=== PATIENT | male | born 1985 | race Caucasian/White ===

== ENCOUNTER 2019-09-08 14:12 | Inpatient (IN) | payer OTHER ==
[~2019-09-08] VITALS: Ht 182.9 cm; Wt 85.7 kg
[2019-09-08 14:12] VITALS: BP 155/115
[2019-09-08 15:52] LABS: BASO # 0.1 10*3/uL (0.0-0.1); BASO % 0.4 % (0.0-1.0); EOS # 0.1 10*3/uL (0.0-0.4); EOS % 0.9 % (1.0-4.0); HEMATOCRIT 46.3 % (42.0-52.0); HEMOGLOBIN 16.9 g/dl (14.0-18.0); LYMPH # 1.6 10*3/uL (1.3-4.4); LYMPH % 13.6 % (27.0-41.0); MEAN CELL VOLUME 85.6 fl (80.0-94.0); MEAN CORPUSCULAR HGB 31.2 pg (27.0-31.0); MEAN CORPUSCULAR HGB CONC 36.5 g/dl (33.0-37.0); MEAN PLATELET VOLUME 9.3 fl (9.6-12.3); MONO # 0.6 10*3/uL (0.1-1.0); MONO % 5.2 % (3.0-9.0); NEUT % 79.6 % (47.0-73.0); PLATELET COUNT AUTOMATED 276 10*3/uL (130-400); RED BLOOD COUNT 5.41 10*6/uL (4.50-5.90); RED CELL DISTRI WIDTH 12.2 % (0-14.5); WHITE BLOOD COUNT 11.4 10*3/uL (4.8-10.8)
[2019-09-08 16:09] LABS: ALBUMIN 4.4 gm/dl (3.1-4.5); ALKALINE PHOSPHATASE 117 U/L (45-117); BUN 6 mg/dl (7-24); CHLORIDE 106 mmol/L (98-107); CREATININE 1.08 mg/dL (0.70-1.30); LIPASE 144 U/L (73-393); POTASSIUM 4.1 mmol/L (3.5-5.1); SGOT/AST 16 IU/L (3-35); SGPT/ALT 30 U/L (12-78); SODIUM 141 mmol/L (136-145)
[2019-09-08 16:34] VITALS: BP 138/83
[2019-09-08 16:43] LABS: BILIRUBIN NEGATIVE (NEGATIVE); BLOOD NEGATIVE (NEGATIVE); CLARITY CLEAR (CLEAR); COLOR YELLOW (YELLOW); GLUCOSE NEGATIVE (NEGATIVE); KETONE NEGATIVE (NEGATIVE); LEUKO ESTERASE TRACE (NEGATIVE); NITRITE NEGATIVE (NEGATIVE); SPECIFIC GRAVITY <= 1.005 (1.005-1.030); UROBILINOGEN 0.2 E.U./dl (0.2-1.0)
[2019-09-08 16:51] LABS: URINE AMPHETAMINES < 1000 (1000ng/ml); URINE BARBITURATES > 200 (200ng/ml); URINE BENZODIAZEPINES < 200 (200ng/ml); URINE CANNABINOIDS (THC) < 50 (50ng/ml); URINE COCAINE < 300 (300ng/ml); URINE METHADONE < 300 (300ng/ml); URINE OPIATES < 300 (300ng/ml)
[2019-09-08 16:53] LABS: URINE PHENCYCLIDINE < 25 (25ng/ml)
[2019-09-08 17:00] VITALS: BP 146/87
[2019-09-08 17:01] LABS: RBC 0-2 rbc/hpf (0-2); WBC 0-2 wbc/hpf (0-5)
--- NOTE | 2019-09-08 17:08 | NUR ---
PATIENT IS INTERESTED IN NEW VISION SERVICES. [place] STAFF WILL FOLLOW UP WITH PATIENT. ALEJANDRO TAVAREZ B.A. LOGGING SHOVEL OPERATOR
[2019-09-08 17:10] VITALS: BP 146/87
--- NOTE | 2019-09-08 17:10 | NUR ---
A 34, admitted to ICCU, under the services of ROSSI Myers DO with a diagnosis of ETOH WITHDRAWAL. Chief complaint is WANTS TO BE IN NEW VISION PROGRAM. Patient arrived via wheel chair from ER. Monitor applied. Initial assessment completed. Vital signs taken and recorded. ROSSI MYERS DO notified of admission to the unit. Orders received. See assessment for past medical history, medications and allergies. Patient and/or family oriented to unit. [facility] ICCU visitation policy reviewed. Clothing/patient valuable form completed. DOM LILLY
[2019-09-08] MEDS ORDERED: PROZAC20 MG PO (17:14)
--- NOTE | 2019-09-08 18:08 | NUR ---
KAYLA VISTARIL,ROBAXIN GIVEN FOR ETOH WITHBISHOP S/S
[2019-09-08 20:00] VITALS: BP 134/88
--- NOTE | 2019-09-08 20:14 | NUR ---
1939 ROUTINE PO ATIVAN GIVEN ORDERED. ZOFRAN IV FOR NAUSEA. NO EMESIS NOTED. IV FLUIDS CONT. STOOD AT BEDSIDE TO VOID. HR LOW 100'S WHEN RESTING, UP IN THE 140'S WITH ACTIVITY. TREMORS NOTED OF BILATERAL UPPER EXTREMITIES. WILL MONITOR.
--- NOTE | 2019-09-08 22:16 | NUR ---
RESTING IN BED. ON PHONE. IN NO VISIBLE DISTRESS.
--- NOTE | 2019-09-08 23:50 | NUR ---
2345 ROUTINE ATIVAN PO GIVEN. ROBAXIN GIVEN FOR MUSCLE ACHES, BENTYL FOR STOMACH CRAMPS AND VISTARIL FOR ANXIETY. WILL MONITOR.
[2019-09-09] VITALS: BP 132/78
--- NOTE | 2019-09-09 00:18 | NUR ---
RESTING IN BED LISTENING TO MUSIC ON PHONE WITH EARBUDS. NO DISTRESS NOTED.
--- NOTE | 2019-09-09 00:34 | NUR ---
1225 ATIVAN 1MG IV GIVEN FOR ANXIETY AND CONT TREMORS. WILL MONITOR.
--- NOTE | 2019-09-09 01:34 | NUR ---
0130 ZOFRAN IV FOR NAUSEA. NO EMESIS NOTED. FACE FLUSHED. COOL CLOTH TO FOREHEAD. PT REMAINS ALERT AND ORIENTED. CONT TO HAVE TREMORS OF HANDS.
--- NOTE | 2019-09-09 01:56 | NUR ---
EARLIER MEDS EFFECTIVE. RESTING IN BED WITH EYES CLOSED. APPEARS TO BE SLEEPING.
--- NOTE | 2019-09-09 03:47 | NUR ---
ROUTINE ATIVAN PO GIVEN.
[2019-09-09 04:00] VITALS: BP 146/73
[2019-09-09 05:40] LABS: ALBUMIN 3.6 gm/dl (3.1-4.5); ALKALINE PHOSPHATASE 94 U/L (45-117); BUN 10 mg/dl (7-24); CHLORIDE 107 mmol/L (98-107); CREATININE 1.06 mg/dL (0.70-1.30); FREE T4 1.17 ng/dl (0.76-1.46); PHOSPHOROUS 2.9 mg/dL (2.5-4.9); POTASSIUM 3.8 mmol/L (3.5-5.1); SGOT/AST 11 IU/L (3-35); SGPT/ALT 26 U/L (12-78); SODIUM 140 mmol/L (136-145); TOTAL PROTEIN 6.5 gm/dL (6.4-8.2)
[2019-09-09 05:57] LABS: BASO # 0.1 10*3/uL (0.0-0.1); BASO % 0.6 % (0.0-1.0); EOS # 0.2 10*3/uL (0.0-0.4); EOS % 2.3 % (1.0-4.0); HEMATOCRIT 40.7 % (42.0-52.0); HEMOGLOBIN 14.4 g/dl (14.0-18.0); LYMPH # 1.7 10*3/uL (1.3-4.4); LYMPH % 19.2 % (27.0-41.0); MEAN CELL VOLUME 88.5 fl (80.0-94.0); MEAN CORPUSCULAR HGB 31.3 pg (27.0-31.0); MEAN CORPUSCULAR HGB CONC 35.4 g/dl (33.0-37.0); MEAN PLATELET VOLUME 9.9 fl (9.6-12.3); MONO # 0.7 10*3/uL (0.1-1.0); MONO % 8.1 % (3.0-9.0); NEUT # 6.2 10*3/uL (2.3-7.9); NEUT % 69.5 % (47.0-73.0); RED CELL DISTRI WIDTH 12.2 % (0-14.5)
[2019-09-09 05:58] LABS: PLATELET COUNT AUTOMATED 181 10*3/uL (130-400)
--- NOTE | 2019-09-09 06:09 | NUR ---
RESTING IN BED WITH EYES CLOSED. APPEARS TO BE SLEEPING. HEP LOCK INTACT RAN. NO DISTRESS NOTED. CONDITION GUARDED.
[2019-09-09 06:45] LABS: ACT PARTIAL THROMBO TIME 27.4 SECONDS (20.0-32.1)
[2019-09-09 07:42] LABS: VITAMIN D, 25-HYDROXY 21.7 ng/mL (30-100)
--- NOTE | 2019-09-09 07:53 | NUR ---
PT RESTING. PT AWAKENS EASILY WITH STIMULI. PT ALERT AND ORIENTED WHEN AWAKE. RESP EASY. VSS. PT'S HR WILL INCREASE ITH ACTIVITY UP TO 130'S. LUNGS ARE CLEAR. PT STATES HE HAS AN OCCASSIONAL COUGH PRODUCTIVE OF BLACKISH YELLOW SPUTUM. PT C/O MUSCLE ACHES. MEDICATED PT PER PRN ORDER WITH ROBAXIN. WILL CONTINUE TO MONITOR PT.
[2019-09-09 08:00] VITALS: BP 140/91
--- NOTE | 2019-09-09 08:30 | NUR ---
PT SLEEPING. EARLIER ROBAXIN EFFECTIVE.
--- NOTE | 2019-09-09 11:50 | NUR ---
PT C/O INCREASED ANXIETY. PT REQUESTING IV ATIVAN. MEDICATED PT PER PRN ORDER WITH IV ATIVAN. PT IS VERY TREMULOUS AT THIS TIME.
[2019-09-09 12:00] VITALS: BP 139/86
--- NOTE | 2019-09-09 12:20 | NUR ---
PT RESTING. EARLIER ATIVAN EFFECTIVE.
[2019-09-09 16:00] VITALS: BP 141/86
--- NOTE | 2019-09-09 18:27 | NUR ---
PATIENT HAD A SMALL EMESIS. C/O NAUSEA AND ASKING FOR MEDICINE TO HELP WITH TREMORS. MEDICATED WITH ZOFRAN AND ATIVAN IV PER PRN ORDERS. WILL CONTINUE TO MONITOR.
[2019-09-09 20:00] VITALS: BP 138/89
--- NOTE | 2019-09-09 20:00 | NUR ---
RESTING COMFORTABLY. FINE HAND TREMORS NOTED. FEELS MUCH BETTER AFTER IV ATIVAN GIVEN. FACE FLUSHED. LUNGS CLEAR BILATERALLY. AFEBRILE.
--- NOTE | 2019-09-09 22:15 | NUR ---
MEDICATED WITH ROUTINE PO ATIVAN. MEDICATED WITH PO BENTYL AND ROBAXIN FOR COMPLAINTS OF STOMACH CRAMPS AND MUSCLE ACHES
--- NOTE | 2019-09-09 23:00 | NUR ---
VOICES THAT SCARLET AND DAVID EFFECTIVE
[2019-09-10] VITALS: BP 134/81
--- NOTE | 2019-09-10 01:00 | NUR ---
MEDICATED WITH ATIVAN 1MG IV FOR COMPLAINTS OF RESTLESSNESS AND HAND TREMORS. SWEATING
--- NOTE | 2019-09-10 01:45 | NUR ---
ATIVAN EFFECTIVE. SNORING.
[2019-09-10 04:00] VITALS: BP 135/99
--- NOTE | 2019-09-10 05:25 | NUR ---
MEDICATED WITH ATIVAN AND ZOFRAN IV ORDERED FOR COMPLAINTS OF BODY ACHES, ANXIETY AND TREMORS ALL OVER BODY
--- NOTE | 2019-09-10 06:15 | NUR ---
ATIVAN EFFECTIVE. SNORING
--- NOTE | 2019-09-10 07:31 | NUR ---
Shift chart check completed.
[2019-09-10 08:00] VITALS: BP 128/60
--- NOTE | 2019-09-10 08:37 | NUR ---
Patient displaying withdrawal symptoms, including: anxiousness, sweaty, mild tremors barely seen, with mild restlessness. Patient scores a 5 on the withdrawal scale. Scheduled/PRN medications provided. Will continue to monitor medication effectiveness.
--- NOTE | 2019-09-10 09:38 | NUR ---
CIWA SCALE DOWN TO 4 AFTER MEDICATED
--- NOTE | 2019-09-10 11:27 | NUR ---
IV ATIVAN GIVEN FOR CONTINUED C/O TREMORS, DIAPHORESIS. STAND TO VOID WITHOUT DIFFICULTY
[2019-09-10 12:00] VITALS: BP 117/64
--- NOTE | 2019-09-10 12:37 | NUR ---
CALMER & ORDERING FOOD AFTER MEDICATED WITH IV ATIVAN
--- NOTE | 2019-09-10 14:23 | NUR ---
dozing off & on. No signs of seizures
--- NOTE | 2019-09-10 14:44 | NUR ---
Patient displaying withdrawal symptoms, including: anxiousness, TREMORS restlessness & upset stomach. Scheduled/PRN medications provided. Will continue to monitor medication effectiveness.
--- NOTE | 2019-09-10 15:08 | NUR ---
PO PRN ATIVAN GIVEN FOR CONTINUED VISIBLE TREMORS
[2019-09-10 15:49] VITALS: BP 141/90
--- NOTE | 2019-09-10 17:41 | NUR ---
PATIENT AWOKE TO USE BATHROOM FOR BM..TYLENOL GIVEN FOR SWEATING..PT AGAIN ASKING HOW OFTEN HE CAN HAVE IV ATIVAN. TOLD HE WAS JUST GIVEN PO SO NEED TO WAIT AND HE SAID OK.
--- NOTE | 2019-09-10 18:36 | NUR ---
SLEEPING - SNORING - AFTER TYLENOL FOR SWEATS
[2019-09-10 20:00] VITALS: BP 128/88
--- NOTE | 2019-09-11 00:01 | NUR ---
PATIENT HAVING VISIBLE TREMORS PATIENT GIVEN IV ATIVAN AT THIS TIME.
--- NOTE | 2019-09-11 07:30 | NUR ---
PT RESTING QUIETLY IN BED. VOICES NO CONCERNS AT THIS TIME. NO S/S OF DISTRESS NOTED. RESPS EASY AND NONLABORED. NO TREMORS. CALL LIGHT WITHIN REACH.
[2019-09-11 08:00] VITALS: BP 127/89
--- NOTE | 2019-09-11 09:03 | NUR ---
DR DIAZ IN TO SEE PATIENT
--- NOTE | 2019-09-11 10:25 | NUR ---
Shift chart check completed.
--- NOTE | 2019-09-11 15:17 | NUR ---
Discharge instructions reviewed with patient/family. Patient receptive and verbalizes understanding. Follow-up care arranged. Written instructions given to patient/family. HISSOM,ANDIE The Discharge Plan/Instructions have been completed.
== END 2019-09-11 15:17 | disposition home or self-care (01) | DRG 775 ==
LOC: ED 14:12 → ICCU 15:37 → EDHOLD 15:37 → ICCU 16:14
PROVIDERS: Emergency Medicine; Internal Medicine; ADMIT Family Medicine
DX: F10.239 Alcohol dependence with withdrawal, unspecified (principal); K92.0 Hematemesis; R03.0 Elevated blood-pressure reading, without diagnosis of hypertension; F17.210 Nicotine dependence, cigarettes, uncomplicated; R73.9 Hyperglycemia, unspecified; R65.10 Systemic inflammatory response syndrome (SIRS) of non-infectious origin without acute organ dysfunction; F32.9 Major depressive disorder, single episode, unspecified; D72.829 Elevated white blood cell count, unspecified; F10.29 Alcohol dependence with unspecified alcohol-induced disorder; E55.9 Vitamin D deficiency, unspecified; Y90.9 Presence of alcohol in blood, level not specified; Z71.6 Tobacco abuse counseling; Z88.1 Allergy status to other antibiotic agents

== ENCOUNTER 2019-11-20 11:23 | Inpatient (IN) | payer OTHER ==
[~2019-11-20] VITALS: Ht 182.9 cm; Wt 85.0 kg
[~2019-11-20 11:23] MED LIST: PROZAC20 MG PO
[2019-11-20 11:29] VITALS: BP 148/106
[2019-11-20 11:52] LABS: BILIRUBIN NEGATIVE (NEGATIVE); BLOOD NEGATIVE (NEGATIVE); CLARITY SL CLOUDY (CLEAR); COLOR YELLOW (YELLOW); GLUCOSE NEGATIVE (NEGATIVE); KETONE 3+ (NEGATIVE); SPECIFIC GRAVITY 1.005 (1.005-1.030); UROBILINOGEN 0.2 E.U./dl (0.2-1.0)
[2019-11-20 11:53] LABS: LEUKO ESTERASE NEGATIVE (NEGATIVE); NITRITE NEGATIVE (NEGATIVE)
[2019-11-20 11:58] LABS: BACTERIA TRACE; FINE GRANULAR CAST 20-30; MUCOUS TRACE
[2019-11-20 12:03] LABS: BASO # 0.1 10*3/uL (0.0-0.1); BASO % 0.5 % (0.0-1.0); EOS # 0.1 10*3/uL (0.0-0.4); EOS % 0.7 % (1.0-4.0); HEMATOCRIT 47.3 % (42.0-52.0); HEMOGLOBIN 16.8 g/dl (14.0-18.0); LYMPH # 1.2 10*3/uL (1.3-4.4); MEAN CELL VOLUME 88.7 fl (80.0-94.0); MEAN CORPUSCULAR HGB 31.5 pg (27.0-31.0); MEAN CORPUSCULAR HGB CONC 35.5 g/dl (33.0-37.0); MONO # 0.5 10*3/uL (0.1-1.0); NEUT # 14.7 10*3/uL (2.3-7.9); NEUT % 88.3 % (47.0-73.0); PLATELET COUNT AUTOMATED 285 10*3/uL (130-400); RED BLOOD COUNT 5.33 10*6/uL (4.50-5.90); RED CELL DISTRI WIDTH 11.9 % (0-14.5); WHITE BLOOD COUNT 16.7 10*3/uL (4.8-10.8)
[2019-11-20 12:03] LABS: URINE AMPHETAMINES < 1000 (1000ng/ml); URINE BARBITURATES < 200 (200ng/ml); URINE BENZODIAZEPINES < 200 (200ng/ml); URINE CANNABINOIDS (THC) < 50 (50ng/ml); URINE COCAINE < 300 (300ng/ml); URINE METHADONE < 300 (300ng/ml); URINE OPIATES < 300 (300ng/ml)
[2019-11-20 12:09] LABS: URINE PHENCYCLIDINE < 25 (25ng/ml)
[2019-11-20 12:17] LABS: ALBUMIN 4.6 gm/dl (3.1-4.5); ALKALINE PHOSPHATASE 104 U/L (45-117); BUN 15 mg/dl (7-24); CHLORIDE 99 mmol/L (98-107); CREATININE 1.24 mg/dL (0.70-1.30); LIPASE 138 U/L (73-393); PHOSPHOROUS 3.2 mg/dL (2.5-4.9); POTASSIUM 3.8 mmol/L (3.5-5.1); SGOT/AST 34 IU/L (3-35); SGPT/ALT 56 U/L (12-78); SODIUM 134 mmol/L (136-145); TOTAL PROTEIN 8.3 gm/dL (6.4-8.2)
[2019-11-20 12:22] LABS: ACETAMINOPHEN (TYLENOL) < 5.0 ug/ml (10-30)
[2019-11-20 12:32] VITALS: BP 141/93
[2019-11-20 13:00] VITALS: BP 153/103
--- NOTE | 2019-11-20 13:00 | NUR ---
A 34, admitted to 4E, under the services of ASMITA Adkins DO with a diagnosis of ALCOHOL WITHDRAWAL.. Chief complaint is ALCOHOL WITHDRAWAL. Patient arrived via bed from ER. Monitor applied. Initial assessment completed. Vital signs taken and recorded. ASMITA ADKINS DO notified of admission to the unit. Orders received. See assessment for past medical history, medications and allergies. Patient and/or family oriented to unit. [facility] visitation policy reviewed. Clothing/patient valuable form completed. OSBALDO WANG
--- NOTE | 2019-11-20 13:04 | NUR ---
ATIVAN 1 MG GIVEN FOR S/S WITHDRAWALS. PT DIAPHORETIC,NAUSEOUS AND COARSE TREMORS NOTED UPON ASSESSMENT. ROBAXIN 750 MG AND ZOFRAN 4 MG IVP GIVEN FOR NAUSEA AND RESTLESS LEGS.WILL CONTINUE TO MONITOR.
--- NOTE | 2019-11-20 14:00 | NUR ---
ATIVAN HELPED A LITTLE WELL ROBAXIN. STRAIGHT LIBRIUM GIVEN ALSO.
--- NOTE | 2019-11-20 14:40 | NUR ---
DR. GARCIA NOTIFIED OF ELEVATED LACTIC ACID OF 4.2. NO NEW ORDERS. COLTON TRAVIS NOTIFIED.
--- NOTE | 2019-11-20 14:46 | NUR ---
PATIENT MEETS NEW VISION CRITERIA. PATIENT IS WANTING RESIDENTIAL TREATMENT FOR HIS AFTERCARE PLAN. [place] STAFF PROVIDED PATIENT WITH REFERRAL OPTIONS. ALEJANDRO TAVAREZ B.A. OIL SPREADER OPERATOR
--- NOTE | 2019-11-20 15:08 | NUR ---
ATIVAN GIVEN EARLY OK PER DR. GARCIA FOR WITHDRAWL ALONG WITH VISTARIL AND BENTYL.
[2019-11-20 15:44] VITALS: BP 146/85
--- NOTE | 2019-11-20 17:14 | NUR ---
MEDICATED WITH ATIVAN PER ORDER. TRANSFERED TO ICCU. NURSE TO NURSE REPORT GIVEN.
--- NOTE | 2019-11-20 17:39 | NUR ---
PT TRANSFERRED TO ICU BED 7. PT IS A&OX3, VISIBLE TREMORS AND C/O HEADACHE. DENIES N/V. ST 100S-120S. B/P 146/81. RR 28. SATS HIGH 90S ON ROOM AIR
--- NOTE | 2019-11-20 19:55 | NUR ---
PT WITH VISIBLE TREMORS NOTED. ROUTINE LIBRIUM ORDERED. INSTRUCTED NOT TO GET OOB WITHOUT ASSIST. BED EXIT ALARM ON. IN VIEW OF ICU STAFF.
[2019-11-20 20:00] VITALS: BP 144/81
--- NOTE | 2019-11-20 20:25 | NUR ---
ATIVAN GIVEN AT 2020 PER PT REQUEST FOR ANXIETY AND TREMORS. STATES EARLIER LIBRIUM HELPED "BUT ATIVAN HELPS ME MORE". AGAIN, INSTRUCTED NOT TO GET OOB WITH OUT ASSISTANCE. BED EXIT ALARM EXPLAINED TO PT AND ON.
--- NOTE | 2019-11-20 20:53 | NUR ---
ATIVAN EFFECTIVE. PT LAYING ON HIS RIGHT SIDE, SLEEPING. RESPIRATIONS EVEN AND UNLABORED.
[2019-11-21] VITALS: BP 138/79
--- NOTE | 2019-11-21 00:26 | NUR ---
UPON ASSESSMENT AT MIDNIGHT, PT REQUESTED IV ATIVAN FOR DT'S. EFFECTIVE. PT SLEEPING. BODY RELAXED.
[2019-11-21 04:00] VITALS: BP 128/88
--- NOTE | 2019-11-21 06:08 | NUR ---
ATIVAN PER PT REQUEST FOR RESTLESSNESS, DT'S.
[2019-11-21 07:09] LABS: BASO % 0.7 % (0.0-1.0); EOS # 0.4 10*3/uL (0.0-0.4); EOS % 6.3 % (1.0-4.0); HEMATOCRIT 41.4 % (42.0-52.0); HEMOGLOBIN 14.5 g/dl (14.0-18.0); LYMPH # 1.4 10*3/uL (1.3-4.4); LYMPH % 22.4 % (27.0-41.0); MEAN CELL VOLUME 88.7 fl (80.0-94.0); MEAN PLATELET VOLUME 10.5 fl (9.6-12.3); MONO # 0.5 10*3/uL (0.1-1.0); NEUT # 3.8 10*3/uL (2.3-7.9); NEUT % 62.4 % (47.0-73.0); RED BLOOD COUNT 4.67 10*6/uL (4.50-5.90); RED CELL DISTRI WIDTH 11.9 % (0-14.5)
[2019-11-21 07:10] LABS: BUN 14 mg/dl (7-24); CHLORIDE 106 mmol/L (98-107); CREATININE 1.01 mg/dL (0.70-1.30); POTASSIUM 4.1 mmol/L (3.5-5.1); SODIUM 137 mmol/L (136-145)
[2019-11-21 07:18] LABS: PLATELET COUNT AUTOMATED 196 10*3/uL (130-400)
[2019-11-21 08:00] VITALS: BP 149/100
--- NOTE | 2019-11-21 08:00 | NUR ---
MEDICATED WITH PO LIBRIUM ORDERED PER ROUTINE. BILATERAL HAND TREMORS NOTED BUT HE DOES VOICE HE THINKS THEY ARE IMPROVED. ALERT AND ORIENTED TIMES THREE. NO EDEMA NOTED. HEP LOCK INTACT TO RAN. BP 149/100. PULSE OX 97% ON ROOM AIR
[2019-11-21 12:00] VITALS: BP 128/78
--- NOTE | 2019-11-21 13:03 | NUR ---
PATIENT IS WANTING RESIDENTIAL TREATMENT FOR HIS AFTERCARE PLAN. IN THE PROCESS OF LOOKING FOR BED AVAILABILITY AT [facility]. ALEJANDRO TAVAREZ B.A. PAPER MACHINE OPERATOR
[2019-11-21 16:00] VITALS: BP 137/86
--- NOTE | 2019-11-21 16:11 | NUR ---
PT MEDICATED WITH ROBAXIN FOR MUSCLE PAIN AND MOTRIN FOR HEADACHE PAIN.
--- NOTE | 2019-11-21 16:20 | NUR ---
MEDICATED WITH ATIVAN 1MG IV ORDERED FOR COMPLAINTS OF HAND TREMORS, RESTLESSNESS, AND AGITATION.
[2019-11-21 20:00] VITALS: BP 149/97
--- NOTE | 2019-11-21 20:05 | NUR ---
ATIVAN AND VISTARIL GIVEN PER PT REQUEST FOR ANXIETY/NERVES AT 1999. APPEARS TO BE EFFECTIVE. BODY RELAXED AND TREMORS ARE NOT VISIBLE AT THIS TIME.
--- NOTE | 2019-11-21 23:13 | NUR ---
PT RESTING IN BED. APPEARS RELAXED SINCE PM DOSE OF LIBRIUM AND TRAZADONE PER PT REQUEST. BODY RELAXED, DOZING INTERMITTENTLY.
[2019-11-22] VITALS: BP 137/85
[2019-11-22 05:13] LABS: BUN 10 mg/dl (7-24); CHLORIDE 108 mmol/L (98-107); CREATININE 0.91 mg/dL (0.70-1.30); POTASSIUM 3.7 mmol/L (3.5-5.1); SODIUM 140 mmol/L (136-145)
--- NOTE | 2019-11-22 05:15 | NUR ---
PER PT REQUEST AT 0345, PT MEDICATED WITH VISTARIL FOR ANXIETY, IBUPROFEN AND ROBAXIN FOR GENERALIZED ACHES AND CRAMPING. APPEARS TO BE EFFECTIVE. PT DOZING, BODY RELAXED.
[2019-11-22 06:10] LABS: BASO # 0.1 10*3/uL (0.0-0.1); BASO % 0.9 % (0.0-1.0); EOS # 0.4 10*3/uL (0.0-0.4); EOS % 8.3 % (1.0-4.0); HEMATOCRIT 38.7 % (42.0-52.0); HEMOGLOBIN 13.7 g/dl (14.0-18.0); LYMPH # 1.6 10*3/uL (1.3-4.4); LYMPH % 29.8 % (27.0-41.0); MEAN CELL VOLUME 89.8 fl (80.0-94.0); MEAN CORPUSCULAR HGB 31.8 pg (27.0-31.0); MEAN CORPUSCULAR HGB CONC 35.4 g/dl (33.0-37.0); MEAN PLATELET VOLUME 10.7 fl (9.6-12.3); MONO # 0.4 10*3/uL (0.1-1.0); MONO % 7.7 % (3.0-9.0); NEUT # 2.8 10*3/uL (2.3-7.9); NEUT % 53.1 % (47.0-73.0); PLATELET COUNT AUTOMATED 164 10*3/uL (130-400); RED BLOOD COUNT 4.31 10*6/uL (4.50-5.90); RED CELL DISTRI WIDTH 11.9 % (0-14.5); WHITE BLOOD COUNT 5.3 10*3/uL (4.8-10.8)
--- NOTE | 2019-11-22 07:23 | NUR ---
Shift chart check completed.24 HR chart check completed.
--- NOTE | 2019-11-22 07:53 | NUR ---
AT THIS TIME PATIENT IS SLEEPING SOUNDLY. BED IS IN LOW POSITION WITH WHEELS LOCKED, BED EXIT ALARM IS ACTIVATED.RESPIRATIONS EASY AND NON LABORED. HAVE NOT AWAKENED HIM FOR FULL ASSESSMENT AT THIS TIME.
[2019-11-22 09:15] VITALS: BP 120/70
--- NOTE | 2019-11-22 10:34 | NUR ---
PT AWOKE AROUND 0915 WAS COOPERATIVE, NO SEIZURE ACTIVITY. ASSESSMENT COMPLETE. DR VIZCAINO HAD VISITED EARLIER. SHIFT DIRECTORY, NIYA CONTRERAS, HAS BEEN NOTIFIED THAT PT IS NOW TELEMETRY PATIENT.
--- NOTE | 2019-11-22 11:27 | NUR ---
PT SLEEPING SOUNDLY AT THIS TIME. HE HAD ROUTINE LIBRIUM EARLIER. NO PRN'S HAVE BEEN NEEDED THUS FAR THIS SHIFT.
[2019-11-22 12:50] VITALS: BP 124/83
--- NOTE | 2019-11-22 13:00 | NUR ---
PT DECLINING ANY LUNCH. ASKED FOR SOMETHING FOR "STOMACH" AND "SWEATING" AND "RESTLESSNESS". NO OBVIOUS TREMOR. HR STABLE <90. HE DENIES SEEING OR HEARING ANYTHING STRANGE. PO MAALOX AND ZOFRAN FOR NAUSEA BUT NO EMESIS, VISTARIL FOR ANXIETY, ROBAXIN FOR RESTLESS LEGS. PT UPDATED ON PLAN FOR TRANSFER TO [facility].
--- NOTE | 2019-11-22 13:30 | NUR ---
TRANSFERRED IN STABLE CONDITION, VIA W/C, TO [facility]. TELEMETERY MONITOR ON.
[2019-11-22 16:00] VITALS: BP 137/75
[2019-11-22 20:00] VITALS: BP 114/56
--- NOTE | 2019-11-22 20:00 | NUR ---
IN PT ROOM AT THIS TIME TO COMPLETE ASSESSMENT, PT WAS SLEEPING AND WAKENS EASILY. PT STATES HE HAS NO COMPLAINTS AT THIS TIME. CALL LIGHT WITHIN REACH, WILL CONTINUE TO MONITOR
--- NOTE | 2019-11-22 23:34 | NUR ---
PRN ATIVAN IV IS GIVEN AT THIS TIME DUE TO PATIENT HAVING TREMORS, WILL CONTINUE TO MONITOR
[2019-11-23] VITALS: BP 140/82
--- NOTE | 2019-11-23 00:16 | NUR ---
24 HR chart check completed.
[2019-11-23 08:00] VITALS: BP 133/84
--- NOTE | 2019-11-23 11:13 | NUR ---
Discharge instructions reviewed with patient/family. Patient receptive and verbalizes understanding. Follow-up care arranged. Written instructions given to patient/family. MAGUI SORIANO
== END 2019-11-23 11:13 | disposition home or self-care (01) | DRG 775 ==
LOC: ED 11:23 → EDHOLD 12:02 → ICCU 12:02 → 4E 12:14 → EDHOLD 12:36 → ICCU 17:16 → 4E 11-22 13:23
PROVIDERS: Internal Medicine; Nurse Practitioner Family; Student in an Organized Health Care Education/Training Program; ADMIT Internal Medicine
DX: F10.230 Alcohol dependence with withdrawal, uncomplicated (principal); R65.11 Systemic inflammatory response syndrome (SIRS) of non-infectious origin with acute organ dysfunction; E87.1 Hypo-osmolality and hyponatremia; E87.2 Acidosis; N06.9 Isolated proteinuria with unspecified morphologic lesion; R82.4 Acetonuria; F10.229 Alcohol dependence with intoxication, unspecified; Y90.9 Presence of alcohol in blood, level not specified; F32.5 Major depressive disorder, single episode, in full remission; L30.9 Dermatitis, unspecified; F17.210 Nicotine dependence, cigarettes, uncomplicated; E55.9 Vitamin D deficiency, unspecified; I10 Essential (primary) hypertension; Z71.6 Tobacco abuse counseling; Z88.1 Allergy status to other antibiotic agents